=== PATIENT | female | born 1945 | race Caucasian/White ===

== ENCOUNTER → 2023-12-13 08:37 | Outpatient (REF) | payer OTHER, SELFPAY | LOC: MRI 3T 08:37 | PROVIDERS: ATTENDING PHYSICIAN Orthopaedic Surgery; FAMILY PHYSICIAN Physician Assistant Medical | DX: M25.512 Pain in left shoulder (principal) | CPT/HCPCS: 73221 ==

== ENCOUNTER → 2023-12-14 12:08 | Outpatient (REF) | payer OTHER, SELFPAY ==
[2023-12-14 16:46] LABS: Free T3 3.49 pg/ml (2.77-5.27); Free T4 1.04 ng/dl (0.78-2.19)
[2023-12-14 16:59] LABS: TSH 1.45 uIU/ml (0.47-4.68)
[2023-12-16 23:11] LABS: Thyroid Stim. Immunoglobulin <0.10 IU/L (<=0.54)
[2023-12-17 01:37] LABS: TSH Receptor Antibody <1.10 IU/L (<=1.75)
== END ==
LOC: HWLAB 12:08
PROVIDERS: ATTENDING PHYSICIAN Internal Medicine Endocrinology, Diabetes & Metabolism; FAMILY PHYSICIAN Family Medicine; REFERRING PHYSICIAN Internal Medicine Rheumatology
DX: E05.90 Thyrotoxicosis, unspecified without thyrotoxic crisis or storm (principal)
CPT/HCPCS: 36415; 83520; 84439; 84443; 84445; 84481

== ENCOUNTER → 2024-01-01 14:06 | Outpatient (REF) | payer OTHER, SELFPAY ==
[2024-01-01 16:25] LABS: Urine Albumin Negative (Neg - Trace); Urine Bilirubin Negative (Negative); Urine Character Clear (Clear); Urine Color Yellow; Urine Glucose Negative (Negative); Urine Ketone Negative (Negative); Urine Leukocyte Trace (Negative); Urine Nitrite Negative (Negative); Urine Occult Blood Negative (Negative); Urine Urobilinogen Negative (Neg - 1+)
[2024-01-01 16:33] LABS: Urine Bacteria Few (Negative); Urine Red Blood Cell 0-2 /HPF (0-2); Urine Urothelial Cell 0-2 /LPF (FEW); Urine White Cell 0-2 /HPF (0-5)
== END ==
LOC: CLAB 14:06
PROVIDERS: ATTENDING PHYSICIAN Nurse Practitioner Family
DX: R30.0 Dysuria (principal)
CPT/HCPCS: 81003; 81015; 87086

== ENCOUNTER → 2024-01-29 11:08 | Outpatient (REF) | payer OTHER, SELFPAY ==
[2024-01-29 13:51] LABS: ALT (SGPT) 18 U/L (0-35); AST (SGOT) 24 U/L (14-36); Albumin 4.6 g/dl (3.5-5.0); Alkaline Phosphatase 75 U/L (38-126); Blood Urea Nitrogen 18 mg/dl (7-17); Calcium 10.2 mg/dl (8.4-10.2); Carbon Dioxide 28 mmol/L (22-30); Chloride 107 mmol/L (98-107); Glucose 96 mg/dl (70-99); HDL Cholesterol 65 mg/dl; LDL Cholesterol, Calculated 85 mg/dl; Potassium 4.2 mmol/L (3.5-5.1); Sodium 140 mmol/L (135-145); Total Cholesterol 182 mg/dl (50-199); Total Protein 7.1 g/dl (6.3-8.2); Triglyceride 163 mg/dl (10-149); Very Low Density Lipoprotein 32 mg/dl (0-30); eGFR > 60.00
[2024-01-29 13:53] LABS: Glycohemoglobin (HgbA1c) 6.2 % (4.0-5.6)
== END ==
LOC: HWLAB 11:08
PROVIDERS: ATTENDING PHYSICIAN Family Medicine
DX: I10 Essential (primary) hypertension (principal); E78.00 Pure hypercholesterolemia, unspecified; R73.09 Other abnormal glucose
CPT/HCPCS: 36415; 80053; 80061; 83036

== ENCOUNTER → 2024-02-08 08:56 | Outpatient (REF) | payer BC, SELFPAY | LOC: HWWDC 08:56 | PROVIDERS: ATTENDING PHYSICIAN Family Medicine | DX: Z12.31 Encounter for screening mammogram for malignant neoplasm of breast (principal) | CPT/HCPCS: 77063; 77067 ==

== ENCOUNTER → 2024-03-21 10:09 | Outpatient (REF) | payer BC, SELFPAY ==
[2024-03-21 13:20] LABS: Blood Urea Nitrogen 16 mg/dl (7-17)
[2024-03-21 13:35] LABS: Free T4 1.05 ng/dl (0.78-2.19)
[2024-03-21 13:49] LABS: TSH 1.91 uIU/ml (0.47-4.68)
[2024-03-23 11:48] LABS: Thyroid Peroxidase Ab (TPO) 2.2 IU/mL (0.0-9.0)
[2024-03-23 12:12] LABS: Thyroglobulin 9.4 ng/mL (1.3-31.8); Thyroglobulin Antibodies <0.9 IU/mL (0.0-4.0)
[2024-03-23 17:41] LABS: Total T3 (Sendout) 114 ng/dL (80-200)
[2024-03-23 17:50] LABS: TSH Receptor Antibody <1.10 IU/L (<=1.75)
[2024-03-23 23:06] LABS: Thyroid Stim. Immunoglobulin <0.10 IU/L (<=0.54)
== END ==
LOC: HWLAB 10:09
PROVIDERS: ATTENDING PHYSICIAN Ophthalmology Ophthalmic Plastic and Reconstructive Surgery; FAMILY PHYSICIAN Family Medicine
DX: H05.20 Unspecified exophthalmos (principal); H04.123 Dry eye syndrome of bilateral lacrimal glands; H01.029 Squamous blepharitis unspecified eye, unspecified eyelid; H05.89 Other disorders of orbit
CPT/HCPCS: 36415; 82565; 83520; 84432; 84439; 84443; 84445; 84480; 84520; 86376; 86800

== ENCOUNTER → 2024-03-25 14:05 | Outpatient (REF) | payer OTHER, SELFPAY | LOC: HWRAD 14:05 | PROVIDERS: ATTENDING PHYSICIAN Ophthalmology Ophthalmic Plastic and Reconstructive Surgery; FAMILY PHYSICIAN Family Medicine | DX: H05.20 Unspecified exophthalmos (principal) | CPT/HCPCS: 70482; Q9967 ==

== ENCOUNTER 2024-06-20 09:12 | Emergency (ER) | payer OTHER, SELFPAY ==
[2024-06-20 09:16] VITALS: BP 179/98
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
[2024-06-20] MEDS: TORADOL 30 MG IM (11:00)
== END 2024-06-20 11:15 | disposition home or self-care (01) ==
LOC: EMR 09:12
PROVIDERS: EMERGENCY PHYSICIAN Emergency Medicine; FAMILY PHYSICIAN Family Medicine
DX: M25.562 Pain in left knee (principal); I10 Essential (primary) hypertension; K21.9 Gastro-esophageal reflux disease without esophagitis; E78.00 Pure hypercholesterolemia, unspecified
CPT/HCPCS: 99284; 29505; 96372; 73564

== ENCOUNTER → 2024-07-02 10:25 | Outpatient (REF) | payer OTHER, SELFPAY ==
[2024-07-02 12:48] LABS: % Basophils 0.3 % (0-2); % Eosinophils 1.9 % (0-6); % Immature Granulocytes 0.8 % (0-0.5); Absolute Eosinophils 0.2 10^3/uL (0-0.7); Absolute Immature Granulocytes 0.1 10^3/uL (0-0.05); Absolute Lymphocytes 2.7 10^3/uL (1.2-3.4); Absolute Neutrophils 8.8 10^3/uL (1.4-6.5); Hematocrit 45.6 % (37.0-47.0); Hemoglobin 14.9 g/dL (12.0-16.0); Mean Corp Hgb Conc. 32.7 g/dL (33.0-37.0); Mean Corpuscular Volume 88.9 fL (81.0-99.0); Mean Platelet Volume 11.1 fL (7.4-10.4); Nucleated Red Blood Cells % 0 %; Platelet Count 231 10^3/uL (130-400); Red Blood Cell Count 5.13 10^6/uL (4.20-5.40); Red Cell Dist. Width 13.8 % (11.5-14.5); White Blood Cell Count 12.9 10^3/uL (4.8-10.8)
[2024-07-02 13:22] LABS: ALT (SGPT) 31 U/L (0-35); AST (SGOT) 23 U/L (14-36); Albumin 4.3 g/dl (3.5-5.0); Alkaline Phosphatase 53 U/L (38-126); Blood Urea Nitrogen 32 mg/dl (7-17); Calcium 9.8 mg/dl (8.4-10.2); Carbon Dioxide 26 mmol/L (22-30); Chloride 104 mmol/L (98-107); Glucose 85 mg/dl (70-99); HDL Cholesterol 68 mg/dl; LDL Cholesterol, Calculated 127 mg/dl; Potassium 4.7 mmol/L (3.5-5.1); Sodium 141 mmol/L (135-145); Total Bilirubin 1.6 mg/dl (0.2-1.3); Total Cholesterol 237 mg/dl (50-199); Total Protein 6.6 g/dl (6.3-8.2); Triglyceride 211 mg/dl (10-149); Very Low Density Lipoprotein 42 mg/dl (0-30); eGFR 57.66
[2024-07-02 13:38] LABS: Vitamin D, 25-OH*** 37.7 ng/mL (30-80)
[2024-07-03 15:57] LABS: TSH Reflex To Free T4 2.27 uIU/ml (0.47-4.68)
== END ==
LOC: HWLAB 10:25
PROVIDERS: ATTENDING PHYSICIAN Family Medicine
DX: Z87.09 Personal history of other diseases of the respiratory system (principal); I10 Essential (primary) hypertension; R73.09 Other abnormal glucose; E78.00 Pure hypercholesterolemia, unspecified; M81.0 Age-related osteoporosis without current pathological fracture
CPT/HCPCS: 36415; 80053; 80061; 82306; 83036; 84443; 85025

== ENCOUNTER → 2024-07-03 18:22 | Outpatient (REF) | payer OTHER, SELFPAY ==
[2024-07-03 19:55] LABS: Urine Albumin Negative (Neg - Trace); Urine Bilirubin Negative (Negative); Urine Character Very Cloudy (Clear); Urine Color Yellow; Urine Glucose Negative (Negative); Urine Ketone Negative (Negative); Urine Leukocyte 2+ (Negative); Urine Nitrite Negative (Negative); Urine Occult Blood Negative (Negative); Urine Urobilinogen Negative (Neg - 1+)
[2024-07-03 20:05] LABS: Urine Bacteria Many (Negative); Urine Red Blood Cell 0-2 /HPF (0-2)
== END ==
LOC: CLAB 18:22
PROVIDERS: ATTENDING PHYSICIAN Family Medicine
DX: D72.829 Elevated white blood cell count, unspecified (principal)
CPT/HCPCS: 81003; 81015; 87086

== ENCOUNTER → 2024-07-18 09:08 | Outpatient (REF) | payer OTHER, SELFPAY | LOC: HWRCS 09:08 | PROVIDERS: ATTENDING PHYSICIAN Internal Medicine Cardiovascular Disease; FAMILY PHYSICIAN Family Medicine | DX: I42.2 Other hypertrophic cardiomyopathy (principal); I25.10 Atherosclerotic heart disease of native coronary artery without angina pectoris | CPT/HCPCS: 93306 ==

== ENCOUNTER 2024-07-29 07:52 | Emergency (ER) | payer OTHER, SELFPAY ==
[2024-07-29 08:05] VITALS: BP 147/83
--- NOTE | 2024-07-29 09:04 | ED.GENMED ---
History of Present Illness
<Bethany Luis MD, Resident - Last Filed: 07/29/24 09:41>
General
Chief Complaint: Skin Problem
Source: patient
Exam Limitations: none
Time Seen by Provider: 07/29/24 08:52
Nursing documentation reviewed up to this point in time: agreed with
History of Present Illness
History of Present Illness:
79-year-old female presented to the hospital for evaluation of right anterior melendez ulcer present for 7 days. She bumped her right melendez into the corner of her batter mixer 7 days ago, had a small abrasion wound, and tried to treat it with topical
mupirocin for 2 days without any improvement. She was evaluated by her PCP 5 days ago and was prescribed Keflex, patient took 5 days of Keflex with no relief. Today she has throbbing pain around her wound with increased redness, but no swelling or
does not feel hot to touch. She had a scant greenish-yellow purulent discharge yesterday from the wound. She denies having fevers, chills, rigors, shortness of breath, palpitations, lightheadedness, syncope, calf pain. She denies having
difficulty in bearing weight on her affected leg.
No past medical history of DVT, peripheral artery disease, venous disease.
Past History
<Bethany Luis MD, Resident - Last Filed: 07/29/24 09:41>
Past History
ED Past Medical History: Asthma, COPD, GERD, HTN, Hypercholesterolemia and Other (Diverticulitis)
ED Past Surgical History: Other (Lymph node removal)
Social History
Tobacco: Non-smoker
Alcohol: None
Drug: None
Personal:
Living: with family
Family History
Family History: Other
Review of Systems
<Bethany Luis MD, Resident - Last Filed: 07/29/24 09:41>
Review of Systems
Allergies reviewed?: Yes
Other source history: family
Constitutional: Reports no symptoms
EENT: Reports no symptoms
Respiratory: Reports no symptoms
Cardiac: Reports no symptoms
ABD/GI: Reports no symptoms
: Reports no symptoms
Musculoskeletal: Reports no symptoms
Skin: Reports other (Ulcer on right melendez.)
Neurological: Reports no symptoms
Endocrine: Reports no symptoms
Hematologic/Lymphatic: Reports no symptoms
Psychiatric: Reports no symptoms
Phy Exam
<Bethany Luis MD, Resident - Last Filed: 07/29/24 09:41>
General Physical Exam
General Presentation: well appearing and no apparent distress
General Skin: warm
General Habitus: normal
General Mental: alert
General Hydration: appears well hydrated
Cardiovascular Exam
Cardiovascular Exam: regular rate/rhythm, no edema, no gallop, no JVD, no murmur and normal peripheral pulses
Heart Sounds: normal
Pulmonary Exam
Pulmonary Exam: lungs clear, no respiratory distress, no rales, no crackles and no rhonchi
Musculoskeletal Exam
Musculoskeletal Exam: no edema and other (Dorsalis pedis 2+, posterior tibial 2+ on right and left lower extremities)
Skin Exam
Skin Exam: other (Less than 1 cm abrasion wound with 2 cm of erythematous base. )
Course
<Bethany Luis MD, Resident - Last Filed: 07/29/24 09:41>
Vital Signs
Initial and Last Documented VS:
Initial Vital Signs
Temp Pulse Resp BP Pulse Ox
97.7 F 70 16 147/83 97
07/29/24 08:05 07/29/24 08:05 07/29/24 08:05 07/29/24 08:05 07/29/24 08:05
Last Documented Vital Signs
Temp Pulse Resp BP Pulse Ox
97.7 F 70 16 147/83 97
07/29/24 08:05 07/29/24 08:05 07/29/24 08:05 07/29/24 08:05 07/29/24 08:05
<Karthik Wilson, DO - Last Filed: 07/29/24 09:58>
Vital Signs
Initial and Last Documented VS:
Initial Vital Signs
Temp Pulse Resp BP Pulse Ox
97.7 F 70 16 147/83 97
07/29/24 08:05 07/29/24 08:05 07/29/24 08:05 07/29/24 08:05 07/29/24 08:05
Last Documented Vital Signs
Temp Pulse Resp BP Pulse Ox
97.7 F 70 16 147/83 97
07/29/24 08:05 07/29/24 08:05 07/29/24 08:05 07/29/24 08:05 07/29/24 08:05
<Bethany Luis MD, Resident - Last Filed: 07/29/24 09:41>
MDM/Problems Addressed
Differential Diagnosis Includes:
Ulcer, cellulitis, PAD.
MDM/Problems Addressed:
Ulcer.
Chronic conditions affecting care:
None.
<Bethany Luis MD, Resident - Last Filed: 07/29/24 09:41>
*Radiology
Radiology exam reviewed: preliminary read by ED provider and radiology read reviewed
*Pulse Oximetry
Patient hypoxic: no
*EKG
Interpreted by ED Provider?: NA
*Channel Man Interpretation
Rate: normal
*Critical Care Note
Total Time (30-74mins, 75-104mins- exclusive of procedures): Not Applicable
<Bethany Luis MD, Resident - Last Filed: 07/29/24 09:41>
Update Note
Update Note:
Discussed antibiotic regimen with the patient.
Will give a written prescription for doxycycline, and patient can fill it after finishing a prescription of Keflex
ED Attending Note
<Bethany Luis MD, Resident - Last Filed: 07/29/24 09:41>
-
Portions of this chart may have been created with voice recognition software.� Occasional wrong word or��sound alike� substitutions may have occurred due to the inherent limitations of voice recognition software.
<Karthik Wilson, DO - Last Filed: 07/29/24 09:58>
ED Attending Note
Patient seen and examined by attending physician: Yes
I performed a history and physical exam of patient and discussed management with resident, I reviewed resident's note and agree with documented findings and plan of care.: Yes
ED Attending Note:
I have reviewed and agree with history and treatment plan by Bethany Luis MD. My exam revealed 71-year-old female in no acute distress, abrasion left melendez, mild surrounding erythema. Will continue to treat with Keflex and add
doxycycline if does not improve. Follow-up with primary care.
Discharge Plan
Departure
Patient Disposition: Home (Routine Discharge)
Date of Disposition: 07/29/24
Time of Disposition: 09:30
Patient with high blood pressure during this ER visit?: Yes
Condition: Good
Discharge Problem:
Ulcer of right lower extremity, limited to breakdown of skin, Essential (primary) hypertension
Instructions: Wound Care (DC), Cellulitis (Skin Infection), Adult (DC), BLOOD PRESSURE
Prescriptions:
New
doxycycline hyclate 100 mg tablet
100 mg PO BID 7 Days Qty: 14 0RF
No Action
rizatriptan [Maxalt] 10 MG tablet
10 mg PO DAILYPRN PRN (Reason: migraines)
montelukast 10 MG tablet
10 mg PO QPM
budesonide-formoterol [Symbicort] 1 PUFF HFA aerosol inhaler
2 puff inhalation R BID
levocetirizine [Xyzal] 5 MG tablet
5 mg PO DAILY
adalimumab [Humira(CF) Pen [id number]] 80 MG/0.8 ML pen injector kit
40 mg SC Q2W
Patient Comments:
On hold secondary to antibiotic therapy
esomeprazole magnesium [Nexium Packet] [address] for susp in packet
20 mg PO BID
telmisartan [Micardis] 40 MG tablet
40 mg PO DAILY
diltiazem HCl 120 MG capsule,extended release 24hr
120 mg PO DAILY
amoxicillin-pot clavulanate 1 TABLET tablet
1 tab PO Q12 Qty: 20 0RF
cyclobenzaprine 10 mg tablet
10 mg PO TID Qty: 20 0RF
celecoxib [Celebrex] 100 mg capsule
100 mg feeding tube BID Qty: 20 0RF
Referrals:
Lis Alejo DO [Family Provider] -
Activity Restrictions/Additional Instructions:
Filling the prescription for doxycycline if wound does not resolve with finished course of Keflex.
Interventions
Interventions:
*Risk Screen - Suicide Last Done: 07/29/24 08:05
*General Assessment Last Done: 07/29/24 09:04
*Neglect/Abuse Screening Last Done: 07/29/24 08:05
*ED COVID-19 Vaccine History Last Done: 07/29/24 09:04
*Nursing Disposition Last Done: 07/29/24 09:45
ED-Skin Assessment Last Done: 07/29/24 09:44
Discharge Date and Time
Discharge Date/Time: 07/29/24 09:46
Print Language: TAIWANESE
== END 2024-07-29 09:46 | disposition home or self-care (01) ==
LOC: EMR 07:52
PROVIDERS: EMERGENCY PHYSICIAN Emergency Medicine; FAMILY PHYSICIAN Family Medicine
DX: L97.211 Non-pressure chronic ulcer of right calf limited to breakdown of skin (principal); I10 Essential (primary) hypertension; E78.00 Pure hypercholesterolemia, unspecified; J44.89 Other specified chronic obstructive pulmonary disease; K21.9 Gastro-esophageal reflux disease without esophagitis
CPT/HCPCS: 99283

== ENCOUNTER → 2024-09-18 13:23 | Outpatient (REF) | payer OTHER, SELFPAY | LOC: UCDH 13:23 | PROVIDERS: ATTENDING PHYSICIAN Physician Assistant Medical; FAMILY PHYSICIAN Student in an Organized Health Care Education/Training Program | DX: R05.9 Cough, unspecified (principal) | CPT/HCPCS: 71046 ==

== ENCOUNTER → 2024-11-17 09:27 | Outpatient (REF) | payer OTHER, SELFPAY | LOC: MRI 3T 09:27 | PROVIDERS: ATTENDING PHYSICIAN Physician Assistant Medical; FAMILY PHYSICIAN Student in an Organized Health Care Education/Training Program | DX: M76.892 Other specified enthesopathies of left lower limb, excluding foot (principal); M70.62 Trochanteric bursitis, left hip | CPT/HCPCS: 72148; 73721 ==

== ENCOUNTER 2024-12-02 20:42 | Emergency (ER) | payer OTHER, SELFPAY ==
[2024-12-02 20:44] VITALS: BP 160/79
[2024-12-02 21:53] LABS: % Basophils 0.4 % (0-2); % Eosinophils 1.4 % (0-6); % Immature Granulocytes 0.5 % (0-0.5); % Lymphocytes 22.6 % (20.5-51.1); % Monocytes 8.6 % (1.7-9.3); % Neutrophils 66.5 % (42.2-75.2); Absolute Eosinophils 0.1 10^3/uL (0-0.7); Absolute Lymphocytes 1.9 10^3/uL (1.2-3.4); Absolute Monocytes 0.7 10^3/uL (0.1-0.6); Absolute Neutrophils 5.6 10^3/uL (1.4-6.5); Hematocrit 40.5 % (37.0-47.0); Hemoglobin 13.4 g/dL (12.0-16.0); Mean Corp Hgb Conc. 33.1 g/dL (33.0-37.0); Mean Corpuscular Volume 90.8 fL (81.0-99.0); Mean Platelet Volume 10.6 fL (7.4-10.4); Nucleated Red Blood Cells % 0 %; Platelet Count 206 10^3/uL (130-400); Red Blood Cell Count 4.46 10^6/uL (4.20-5.40); Red Cell Dist. Width 14.5 % (11.5-14.5); White Blood Cell Count 8.5 10^3/uL (4.8-10.8)
[2024-12-02] MEDS: TORADOL 15 MG IV (21:53)
[2024-12-02 22:08] LABS: ALT (SGPT) 27 U/L (0-35); AST (SGOT) 27 U/L (14-36); Alkaline Phosphatase 58 U/L (38-126); Blood Urea Nitrogen 21 mg/dl (7-17); Calcium 9.9 mg/dl (8.4-10.2); Carbon Dioxide 24 mmol/L (22-30); Chloride 108 mmol/L (98-107); Glucose 98 mg/dl (70-99); Potassium 4.1 mmol/L (3.5-5.1); Sodium 139 mmol/L (135-145); Total Bilirubin 1.3 mg/dl (0.2-1.3); Total Protein 6.3 g/dl (6.3-8.2); eGFR 51.43
--- NOTE | 2024-12-02 22:33 | ED.GENMED ---
History of Present Illness
<Alex Kimble MD - Last Filed: 12/02/24 22:39>
General
Chief Complaint: Circulation Problem
Source: patient
Exam Limitations: none
Time Seen by Provider: 12/02/24 21:22
History of Present Illness
History of Present Illness:
79-year-old female was sitting watching TV with sudden onset of left arm pain. [place] like her hand was cold and numb and tingly. Symptoms for a few hours. No history of same
Past History
<Alex Kimble MD - Last Filed: 12/02/24 22:39>
Past History
ED Past Medical History: Asthma, COPD, GERD, HTN, Hypercholesterolemia and Other (Diverticulitis)
ED Past Surgical History: Other (Lymph node removal)
Social History
Tobacco: Non-smoker
Alcohol: None
Drug: None
Personal:
Living: with family
Family History
Family History: Other
Review of Systems
<Alex Kimble MD - Last Filed: 12/02/24 22:39>
Review of Systems
All Other Systems: Not applicable
Respiratory: Reports no symptoms
Cardiac: Denies chest pain or syncope
Phy Exam
<Alex Kimble MD - Last Filed: 12/02/24 22:39>
Physical Exam
Physical Exam:
GENERAL: Alert and oriented in no apparent distress
EYE: Orbits normal.
NECK: Supple
CARDIAC: Regular rate and rhythm without any obvious murmurs.
LUNGS: Clear breath sounds,normal
ABDOMEN: Soft, without focal tenderness or distention
NEUROLOGICAL: Alert and oriented , grossly non-focal
SKIN: Warm and dry, no rash or lesion, no discoloration, skin intact.
MUSCULOSKELETAL: No edema,no deformity.Good color. Good radial pulses to the left hand. Good color. Capillary refill normal. I do not appreciate any unusual coldness weakness. Sensation is intact. She does have pain at the wrist nonlocalizing.
Pain with flexion extension of the wrist.
PSYCH: Normal and appropriate interaction.
Course
<Alex Kimble MD - Last Filed: 12/02/24 22:39>
Orders/Labs/Results
Orders:
Orders
12/02/24 20:48
Hand, Left 3 View [CR Hand - Left Min 3 Views] Urgent
Comment:
Reason For Exam: pain, cool fingers
12/02/24 20:56
Arms, left US [US Periph Venous UPPER Ext LT] Urgent
Comment:
Reason For Exam: coolness in fingers, pain
12/02/24 21:41
IV Insert/Care/Rem.- Treatment PRN
0.9% Sodium Chloride 500 ml [Nss] 500 ml IV BOLUS
Ketorolac [Toradol] 15 mg IV NOW STA
12/02/24 21:47
Complete Blood Count/With Diff Urgent
Comprehensive Metabolic Panel Urgent
12/02/24 22:42
Volar Left-Treatment ONCE
12/03/24
CT Upper Ext Angio W/wo Iv Con Urgent
Reason For Exam: Left hand coldness numbness
12/03/24 00:21
Diphenhydramine [Benadryl] 50 mg IV NOW STA
Hydrocortisone Sod Succinate [Solu-Cortef] 200 mg IV NOW STA
Abnormal Lab Results
12/02/24
21:47
MPV 10.6 H fL
(7.4-10.4)
Absolute Monos (auto) 0.7 H 10^3/uL
(0.1-0.6)
Chloride 108 H mmol/L
(98-107)
BUN 21 H mg/dl
(7-17)
Creatinine 1.1 H mg/dL
(0.6-1.0)
12/02/24 21:47
12/02/24 21:47
Vital Signs
Initial and Last Documented VS:
Initial Vital Signs
Temp Pulse Resp BP Pulse Ox
97.5 F 101 16 160/79 100
12/02/24 20:44 12/02/24 20:44 12/02/24 20:44 12/02/24 20:44 12/02/24 20:44
Last Documented Vital Signs
Temp Pulse Resp BP Pulse Ox
98.0 F 76 16 133/86 93
12/03/24 00:21 12/03/24 00:21 12/02/24 20:44 12/03/24 00:21 12/03/24 01:30
<Britney Sorenson, DO - Last Filed: 12/03/24 02:21>
Orders/Labs/Results
Orders:
Orders
12/02/24 20:48
Hand, Left 3 View [CR Hand - Left Min 3 Views] Urgent
Comment:
Reason For Exam: pain, cool fingers
12/02/24 20:56
Arms, left US [US Periph Venous UPPER Ext LT] Urgent
Comment:
Reason For Exam: coolness in fingers, pain
12/02/24 21:41
IV Insert/Care/Rem.- Treatment PRN
0.9% Sodium Chloride 500 ml [Nss] 500 ml IV BOLUS
Ketorolac [Toradol] 15 mg IV NOW STA
12/02/24 21:47
Complete Blood Count/With Diff Urgent
Comprehensive Metabolic Panel Urgent
12/02/24 22:42
Volar Left-Treatment ONCE
12/03/24
CT Upper Ext Angio W/wo Iv Con Urgent
Reason For Exam: Left hand coldness numbness
12/03/24 00:21
Diphenhydramine [Benadryl] 50 mg IV NOW STA
Hydrocortisone Sod Succinate [Solu-Cortef] 200 mg IV NOW STA
Abnormal Lab Results
12/02/24
21:47
MPV 10.6 H fL
(7.4-10.4)
Absolute Monos (auto) 0.7 H 10^3/uL
(0.1-0.6)
Chloride 108 H mmol/L
(98-107)
BUN 21 H mg/dl
(7-17)
Creatinine 1.1 H mg/dL
(0.6-1.0)
12/02/24 21:47
12/02/24 21:47
Vital Signs
Initial and Last Documented VS:
Initial Vital Signs
Temp Pulse Resp BP Pulse Ox
97.5 F 101 16 160/79 100
12/02/24 20:44 12/02/24 20:44 12/02/24 20:44 12/02/24 20:44 12/02/24 20:44
Last Documented Vital Signs
Temp Pulse Resp BP Pulse Ox
98.0 F 76 16 133/86 93
12/03/24 00:21 12/03/24 00:21 12/02/24 20:44 12/03/24 00:21 12/03/24 01:30
<Alex Kimble MD - Last Filed: 12/02/24 22:39>
MDM/Problems Addressed
Differential Diagnosis Includes:
Based on my physical exam I have a very low suspicion for vascular emergency. Clinically she has good color and pulses. However her description of coolness to the hand paleness warrants a arterial workup. CT angio pending. If negative stable for
discharge to follow-up
<Alex Kimble MD - Last Filed: 12/02/24 22:39>
*Radiology
Radiology exam reviewed: radiology read reviewed (No DVT. Degenerative changes of the hand.)
*Pulse Oximetry
Patient hypoxic: no
Data Reviewed
Review of Other/Old Records Reveals: Labs, Records and Testing
<Britney Sorenson DO - Last Filed: 12/03/24 02:21>
*Critical Care Note
Total Time (30-74mins, 75-104mins- exclusive of procedures): Not Applicable
<Alex Kimble MD - Last Filed: 12/02/24 22:39>
Update Note
Update Note:
Labs negative ultrasound negative. CT angio pending. If negative stable for discharge. Patient's hand was rechecked is warm dry perfusing well. Not sick in appearance
<Britney Sorenson DO - Last Filed: 12/03/24 02:21>
Update Note
Update Note:
Labs negative ultrasound negative. CT angio pending. If negative stable for discharge. Patient's hand was rechecked is warm dry perfusing well. Not sick in appearance
00:15
Pt reports hx of rash after IV contrast a few years ago at [facility]. Upon review of records, pt underwent IV contrast CT orbits 03/2024 without adverse event and appears did not require pre-medication.
none the less, will pre-treat with benadryl, solucortef.
02:15
CT LUE shows no arterial abnormalities. there is note of LLL pulmonary nodule 2.8 x 2.7 cm Upon review of records, this nodule has been demonstrated on CT chest 11/2021 and unchanged since 03/2017.
Will d/c to home with plan for fu with PCP.
ED Attending Note
<Alex Kimble MD - Last Filed: 12/02/24 22:39>
-
Portions of this chart may have been created with voice recognition software.� Occasional wrong word or��sound alike� substitutions may have occurred due to the inherent limitations of voice recognition software.
Discharge Plan
Departure
Patient Disposition: Home (Routine Discharge)
Date of Disposition: 12/03/24
Time of Disposition: 02:20
Patient with high blood pressure during this ER visit?: Yes
Discharge Problem:
Nontraumatic left wrist/arm pain, Evaluation for vascular emergency
Instructions: Muscle and Bone Pain (DC), BLOOD PRESSURE
Prescriptions:
No Action
rizatriptan [Maxalt] 10 MG tablet
10 mg PO DAILYPRN PRN (Reason: migraines)
montelukast 10 MG tablet
10 mg PO QPM
budesonide-formoterol [Symbicort] 1 PUFF HFA aerosol inhaler
2 puff inhalation R BID
levocetirizine [Xyzal] 5 MG tablet
5 mg PO DAILY
adalimumab [Humira(CF) Pen [id number]] 80 MG/0.8 ML pen injector kit
40 mg SC Q2W
Patient Comments:
On hold secondary to antibiotic therapy
esomeprazole magnesium [Nexium Packet] [address] for susp in packet
20 mg PO BID
telmisartan [Micardis] 40 MG tablet
40 mg PO DAILY
diltiazem HCl 120 MG capsule,extended release 24hr
120 mg PO DAILY
amoxicillin-pot clavulanate 1 TABLET tablet
1 tab PO Q12 Qty: 20 0RF
cyclobenzaprine 10 mg tablet
10 mg PO TID Qty: 20 0RF
celecoxib [Celebrex] 100 mg capsule
100 mg feeding tube BID Qty: 20 0RF
doxycycline hyclate 100 mg tablet
100 mg PO BID 7 Days Qty: 14 0RF
Referrals:
[facility] [Other]
Activity Restrictions/Additional Instructions:
Follow-up closely with your primary physician
Return sooner with increased pain numbness tingling weakness swelling redness or any other concerning symptoms
Interventions
Interventions:
*Risk Screen - Suicide Last Done: 12/02/24 20:44
*General Assessment Last Done: 12/02/24 20:44
*Neglect/Abuse Screening Last Done: 12/02/24 20:44
*ED COVID-19 Vaccine History Last Done: 12/02/24 20:44
ED-Musculoskeletal Assessment Last Done: 12/03/24 01:25
ED-Peripheral Vascular Assessment Last Done: 12/02/24 21:42
ED-Skin Assessment Last Done: 12/03/24 01:25
Discharge Date and Time
Print Language: TRISTANIAN
[2024-12-02] MEDS: NSS 500 IV (23:01)
[2024-12-02 23:03] VITALS: BP 160/72
[2024-12-03 00:21] VITALS: BP 133/86
[2024-12-03] MEDS: SOLU-CORTEF 200 MG IV (00:29)
[2024-12-03] MEDS: BENADRYL 50 MG IV (00:29)
[2024-12-03 00:34] VITALS: BMI 31.0
[2024-12-03 02:45] VITALS: BP 164/95
== END 2024-12-03 02:54 | disposition home or self-care (01) ==
LOC: EMR 20:42
PROVIDERS: Emergency Medicine; EMERGENCY PHYSICIAN Emergency Medicine
DX: M79.602 Pain in left arm (principal); Z13.6 Encounter for screening for cardiovascular disorders; I10 Essential (primary) hypertension
CPT/HCPCS: 99285; 96374; 96375 ×2; 96361; 73130; 73206; 80053; 85025; 93971; Q9967

== ENCOUNTER → 2025-02-28 14:42 | Outpatient (REF) | payer OTHER, SELFPAY | LOC: HWWDC 14:42 | PROVIDERS: ATTENDING PHYSICIAN Student in an Organized Health Care Education/Training Program | DX: Z12.31 Encounter for screening mammogram for malignant neoplasm of breast (principal) | CPT/HCPCS: 77063; 77067 ==

== ENCOUNTER → 2025-03-12 12:16 | Outpatient (REF) | payer OTHER, SELFPAY | LOC: EMG 12:16 | PROVIDERS: ATTENDING PHYSICIAN Orthopaedic Surgery; FAMILY PHYSICIAN Student in an Organized Health Care Education/Training Program | DX: R20.0 Anesthesia of skin (principal) | CPT/HCPCS: 95886; 95909 ==

== ENCOUNTER → 2025-03-12 13:55 | Outpatient (REF) | payer OTHER, SELFPAY | LOC: RAD 13:55 | PROVIDERS: ATTENDING PHYSICIAN Internal Medicine Rheumatology; FAMILY PHYSICIAN Student in an Organized Health Care Education/Training Program | DX: L40.50 Arthropathic psoriasis, unspecified (principal); M25.532 Pain in left wrist | CPT/HCPCS: 73110 ==

== ENCOUNTER → 2025-04-02 08:25 | Outpatient (REF) | payer OTHER, SELFPAY | LOC: PAVMRI 08:25 | PROVIDERS: ATTENDING PHYSICIAN Orthopaedic Surgery Hand Surgery; FAMILY PHYSICIAN Student in an Organized Health Care Education/Training Program | DX: D18.00 Hemangioma unspecified site (principal); M19.041 Primary osteoarthritis, right hand | CPT/HCPCS: 73218 ==

== ENCOUNTER → 2025-04-23 08:26 | Outpatient (REF) | payer OTHER, SELFPAY ==
[2025-04-23 12:05] LABS: ALT (SGPT) 16 U/L (0-35); AST (SGOT) 20 U/L (14-36); Albumin 4.5 g/dl (3.5-5.0); Alkaline Phosphatase 58 U/L (38-126); Blood Urea Nitrogen 23 mg/dl (7-17); Calcium 9.6 mg/dl (8.4-10.2); Carbon Dioxide 24 mmol/L (22-30); Chloride 110 mmol/L (98-107); Glucose 83 mg/dl (70-99); Potassium 4.2 mmol/L (3.5-5.1); Sodium 143 mmol/L (135-145); Total Protein 6.8 g/dl (6.3-8.2); eGFR > 60.00
[2025-04-23 12:15] LABS: Vitamin D, 25-OH*** 33.3 ng/mL (30-80)
== END ==
LOC: HWLAB 08:26
PROVIDERS: ATTENDING PHYSICIAN Internal Medicine Endocrinology, Diabetes & Metabolism; FAMILY PHYSICIAN Student in an Organized Health Care Education/Training Program
DX: M81.0 Age-related osteoporosis without current pathological fracture (principal)
CPT/HCPCS: 36415; 80053; 82306

== ENCOUNTER → 2025-05-26 07:47 | Outpatient (REF) | payer OTHER, SELFPAY | LOC: HWRAD 07:47 | PROVIDERS: ATTENDING PHYSICIAN Student in an Organized Health Care Education/Training Program; FAMILY PHYSICIAN Student in an Organized Health Care Education/Training Program | DX: G50.1 Atypical facial pain (principal) | CPT/HCPCS: 70486 ==

== ENCOUNTER → 2025-08-18 10:32 | Outpatient (REF) | payer OTHER, SELFPAY ==
[2025-08-18 12:54] LABS: Hematocrit 42.7 % (37.0-47.0); Hemoglobin 13.6 g/dL (12.0-16.0); Mean Corp Hgb Conc. 31.9 g/dL (33.0-37.0); Mean Corpuscular Volume 92.2 fL (81.0-99.0); Nucleated Red Blood Cells % 0 %; Platelet Count 268 10^3/uL (130-400); Red Cell Dist. Width 13.2 % (11.5-14.5)
[2025-08-18 13:19] LABS: ALT (SGPT) 14 U/L (0-35); AST (SGOT) 20 U/L (14-36); Albumin 4.2 g/dl (3.5-5.0); Alkaline Phosphatase 58 U/L (38-126); Blood Urea Nitrogen 18 mg/dl (7-17); Calcium 9.8 mg/dl (8.4-10.2); Carbon Dioxide 23 mmol/L (22-30); Chloride 108 mmol/L (98-107); Glucose 94 mg/dl (70-99); HDL Cholesterol 55 mg/dl; LDL Cholesterol, Calculated 128 mg/dl; Potassium 4.4 mmol/L (3.5-5.1); Sodium 138 mmol/L (135-145); Total Protein 6.9 g/dl (6.3-8.2); Very Low Density Lipoprotein 33 mg/dl (0-30); eGFR > 60.00
[2025-08-18 13:30] LABS: Vitamin D, 25-OH*** 28.7 ng/mL (30-80)
[2025-08-18 14:00] LABS: Glycohemoglobin (HgbA1c) 6.1 % (4.0-5.9)
== END ==
LOC: HWLAB 10:32
PROVIDERS: ATTENDING PHYSICIAN Student in an Organized Health Care Education/Training Program
DX: E78.00 Pure hypercholesterolemia, unspecified (principal); R73.03 Prediabetes; M81.0 Age-related osteoporosis without current pathological fracture; Z00.00 Encounter for general adult medical examination without abnormal findings; D72.829 Elevated white blood cell count, unspecified
CPT/HCPCS: 36415; 80053; 80061; 82306; 83036; 85025

== ENCOUNTER → 2025-09-22 08:23 | Outpatient (REF) | payer OTHER, SELFPAY | LOC: HWRAD 08:23 | PROVIDERS: ATTENDING PHYSICIAN Internal Medicine Endocrinology, Diabetes & Metabolism; FAMILY PHYSICIAN Student in an Organized Health Care Education/Training Program | DX: M81.0 Age-related osteoporosis without current pathological fracture (principal) | CPT/HCPCS: 77080 ==